=== PATIENT | female | born 1945 | race Caucasian/White ===

== ENCOUNTER 2020-05-30 12:02 | Inpatient (IN) | payer MEDICARE, OTHER ==
[2020-05-30 13:28] LABS: Actual Bicarbonate (HCO3a) 35.4 mEq/L (22-28); Analyzer IN Cardio ER; Base Excess (BEa) 7.3 mEq/L (-2.0 to +3.0); Calcium, Ionized (arterial) 1.15 mmol/L (1.12-1.30); Carboxyhemoglobin (COHb) 0.1 gm% (0.0-3.0); Hemoglobin (Hb) 12.4 g/dL (12.0-16.0); Potassium - ABG Lab 3.66 mmol/L (3.70-5.30); pH, Arterial 7.33 (7.35-7.45)
[2020-05-30 13:30] LABS: CO2 Tension 68.4 mmHg (35.0-45.0); O2 Tension (PaO2), arterial 52.7 mmHg (> 70.0); Puncture Site RRA
[2020-05-30] MEDS ORDERED: Albuterol Sulfate 2.5 mg/3 ml Neb NEB PRN (14:26)
[2020-05-30] MEDS ORDERED: methylPREDNISolone Sod Succ 40 MG VIAL ONE (15:06)
[2020-05-30] MEDS ORDERED: Lorazepam 2 MG/ML VIAL ONE (15:06)
[2020-05-30 15:08] LABS: #Eosinphils 0.1 thou/uL (0.0-0.7); #Lymphocytes 1.5 thou/uL (1.20-3.40); #Monocytes 1.8 thou/uL (0.11-0.59); #Neutrophils 16.2 thou/uL (1.40-6.50); %Basophils 0.1 % (0.0-1.0); %Eosinophils 0.6 % (0.0-10.0); %Lymphocytes 7.8 % (21.0-51.0); %Monocytes 9.1 % (0.0-10.0); %Neutrophils 82.4 % (42.0-75.0); Hemoglobin 12.2 g/dL (12.0-16.0); Mean Corpuscular HGB CONC 33.1 g/dL (32.0-36.0); Mean Corpuscular Hemoglobin 32.7 pg (27.0-31.0); Mean Corpuscular Volume 98.8 fL (78.0-98.0); Mean Platelet Volume 6.8 fL (7.4-10.4); Platelet Count 292 thou/uL (130-400); RBC Distribution Width 12.8 % (11.5-14.5); Red Blood Cell (RBC) Count 3.73 mill/uL (4.20-5.40); White Blood Cell (WBC) Count 19.7 thou/uL (4.8-10.8)
[2020-05-30] MEDS ORDERED: Lorazepam 2 MG/ML VIAL SLOW IVP PRN (15:09)
[2020-05-30 15:13] LABS: PTT 26.1 sec (22.9-36.1); Prothrombin Time 13.2 sec (12.0-14.7)
[2020-05-30] MEDS ORDERED: Ondansetron PF 4 MG/2 ML Vial IVP PRN (15:14)
[2020-05-30] MEDS ORDERED: methylPREDNISolone Sod Succ/PF 125 MG/2 ML VIAL IVP SCH (15:15)
[2020-05-30] MEDS ORDERED: Ventilator Sedation Protocol 1 EACH FS SCH (15:15)
[2020-05-30] MEDS ORDERED: Rocuronium Bromide 10 MG/ML (10ML VIAL) ONE (15:20)
[2020-05-30 15:25] LABS: Lactic Acid 1.2 mmol/L (0.5-2.2)
[2020-05-30 15:29] LABS: Anion Gap 15 mmol/L (10-20); BUN (Urea Nitrogen) 23 mg/dL (9.8-20.1); Calc. Creatinine Clearance 0 mL/min (70-130); Calcium 8.9 mg/dL (7.8-10.44); Carbon Dioxide 34 mmol/L (23-31); Chloride 96 mmol/L (98-107); Glucose 102 mg/dL (83-110); Magnesium 2.3 mg/dL (1.6-2.6); Potassium 4.1 mmol/L (3.5-5.1); Sodium 141 mmol/L (136-145)
[2020-05-30] MEDS ORDERED: Propofol BOLUS 1,000 MG/100 ML VIAL IV PRN (15:30)
[2020-05-30] MEDS ORDERED: Fentanyl BOLUS 250 ML IVPB PRN (15:30)
[2020-05-30] MEDS ORDERED: DISCONTINUE PREVIOUS NARCOTIC PAIN MEDICATIONS AND BENZODIAZEPINES FS SCH (15:30)
[2020-05-30] MEDS ORDERED: Fentanyl CADD 100 ML IV SCH (15:45)
[2020-05-30] MEDS ORDERED: Propofol 1,000 MG/100 ML VIAL IV ONE (16:12)
[2020-05-30] MEDS ORDERED: Vecuronium 10 MG VIAL IVP PRN (16:59)
[2020-05-30 17:02] LABS: Actual Bicarbonate (HCO3a) 33.1 mEq/L (22-28); Base Excess (BEa) 6.2 mEq/L (-2.0 to +3.0); CO2 Tension 58.4 mmHg (35.0-45.0); Calcium, Ionized (arterial) 1.11 mmol/L (1.12-1.30); Carboxyhemoglobin (COHb) 0.5 gm% (0.0-3.0); Hemoglobin (Hb) 12.7 g/dL (12.0-16.0); O2 Tension (PaO2), arterial 90.7 mmHg (> 70.0); Potassium - ABG Lab 3.35 mmol/L (3.70-5.30); pH, Arterial 7.37 (7.35-7.45)
[2020-05-30 17:13] LABS: Puncture Site LRA
[2020-05-30] MEDS ORDERED: methylPREDNISolone Sod Succ 40 MG VIAL IVP SCH (18:00)
[2020-05-30] MEDS: Cefepime 2 GM in Sodium Chloride 0.9% 100 ML IVPB SCH (20:15)
[2020-05-30] MEDS: methylPREDNISolone Sod Succ 40 MG VIAL IVP SCH (20:18)
[2020-05-30] MEDS: Enoxaparin Sodium 60 MG/0.6 ML SYRINGE SC SCH (20:19)
[2020-05-30] MEDS: Propofol 1,000 MG/100 ML VIAL IV PRN (22:03)
[2020-05-31] MEDS: methylPREDNISolone Sod Succ 40 MG VIAL IVP SCH ×4 (03:15→20:39)
[2020-05-31 04:11] LABS: #Lymphocytes 0.5 thou/uL (1.20-3.40); #Monocytes 0.3 thou/uL (0.11-0.59); #Neutrophils 15.2 thou/uL (1.40-6.50); %Basophils 0.1 % (0.0-1.0); %Eosinophils 0.1 % (0.0-10.0); %Lymphocytes 2.8 % (21.0-51.0); %Monocytes 1.7 % (0.0-10.0); %Neutrophils 95.2 % (42.0-75.0); Hemoglobin 11.2 g/dL (12.0-16.0); Mean Corpuscular HGB CONC 33.5 g/dL (32.0-36.0); Mean Corpuscular Hemoglobin 32.5 pg (27.0-31.0); Platelet Count 321 thou/uL (130-400); RBC Distribution Width 12.6 % (11.5-14.5); Red Blood Cell (RBC) Count 3.45 mill/uL (4.20-5.40); White Blood Cell (WBC) Count 15.9 thou/uL (4.8-10.8)
[2020-05-31 04:30] LABS: Anion Gap 17 mmol/L (10-20); BUN (Urea Nitrogen) 25 mg/dL (9.8-20.1); Calc. Creatinine Clearance 54 mL/min (70-130); Calcium 8.2 mg/dL (7.8-10.44); Carbon Dioxide 28 mmol/L (23-31); Chloride 98 mmol/L (98-107); Glucose 135 mg/dL (83-110); Potassium 3.6 mmol/L (3.5-5.1); Sodium 139 mmol/L (136-145)
[2020-05-31] MEDS: Cefepime 2 GM in Sodium Chloride 0.9% 100 ML IVPB SCH ×2 (08:09→20:39)
[2020-05-31] MEDS: Enoxaparin Sodium 60 MG/0.6 ML SYRINGE SC SCH ×2 (08:10→20:39)
[2020-05-31] MEDS ORDERED: FLU VACC QS2020-21(65YR UP)/PF 240 MCG/0.7 ML SYRINGE IM ONE (09:00)
[2020-05-31] MEDS: Propofol 1,000 MG/100 ML VIAL IV PRN ×2 (09:07→18:22)
[2020-05-31] MEDS: Diltiazem 125 MG in Sodium Chloride 0.9% 100 ML IVPB SCH (09:09)
[2020-05-31] MEDS ORDERED: Digoxin 0.5 MG/2 ML AMP SLOW IVP SCH (16:00)
[2020-05-31] MEDS ORDERED: Metoprolol Tartrate 25 MG TAB PO SCH (16:15)
[2020-06-01] MEDS: methylPREDNISolone Sod Succ 40 MG VIAL IVP SCH ×4 (02:22→20:19)
[2020-06-01] MEDS: Propofol 1,000 MG/100 ML VIAL IV PRN (02:23)
[2020-06-01 04:09] LABS: Anion Gap 14 mmol/L (10-20); BUN (Urea Nitrogen) 36 mg/dL (9.8-20.1); Calc. Creatinine Clearance 46 mL/min (70-130); Calcium 8.5 mg/dL (7.8-10.44); Carbon Dioxide 29 mmol/L (23-31); Chloride 99 mmol/L (98-107); Glucose 231 mg/dL (83-110); Sodium 138 mmol/L (136-145)
[2020-06-01 04:35] LABS: Band 2 % (5-11); Hemoglobin 11.8 g/dL (12.0-16.0); Hypochromia SLIGHT = 6-15 cells (100X) (0-5/hpf); MDiff Complete? YES; Mean Corpuscular HGB CONC 33.1 g/dL (32.0-36.0); Mean Corpuscular Hemoglobin 32.1 pg (27.0-31.0); Mean Corpuscular Volume 97.1 fL (78.0-98.0); Mean Platelet Volume 6.5 fL (7.4-10.4); Monocytes 9 % (0-10); Neutrophil 89 % (42-75); Platelet Count 345 thou/uL (130-400); Platelet Morphology Comment Appears Adequate; Red Blood Cell (RBC) Count 3.67 mill/uL (4.20-5.40); White Blood Cell (WBC) Count 26.9 thou/uL (4.8-10.8)
[2020-06-01] MEDS: Diltiazem 125 MG in Sodium Chloride 0.9% 100 ML IVPB SCH (08:57)
[2020-06-01] MEDS ORDERED: Metoprolol Tartrate 25 MG TAB PO SCH (09:00)
[2020-06-01] MEDS: Digoxin 0.5 MG/2 ML AMP SLOW IVP SCH (09:02)
[2020-06-01] MEDS: Enoxaparin Sodium 60 MG/0.6 ML SYRINGE SC SCH ×2 (09:07→20:19)
[2020-06-01] MEDS: Cefepime 2 GM in Sodium Chloride 0.9% 100 ML IVPB SCH ×2 (09:08→20:19)
[2020-06-01] MEDS ORDERED: Sodium Chloride 0.9% 250 ML IV SCH (11:30)
[2020-06-01] MEDS: Lorazepam 2 MG/ML VIAL SLOW IVP PRN (12:07)
[2020-06-01] MEDS: Metoprolol Tartrate 50 MG TAB PO SCH (12:51)
[2020-06-01] MEDS ORDERED: Fentanyl CADD 100 ML ONE (13:35)
[2020-06-01] MEDS ORDERED: Sodium Chloride 0.9% 1,000 ML IV SCH (14:00)
[2020-06-01] MEDS: Amiodarone 450 MG, Admixture Fee 1 EACH in Dextrose 5% in Water 250 ML IVPB SCH ×2 (16:15→22:01)
[2020-06-02 04:24] LABS: Anion Gap 14 mmol/L (10-20); BUN (Urea Nitrogen) 48 mg/dL (9.8-20.1); Calc. Creatinine Clearance 42 mL/min (70-130); Calcium 8.6 mg/dL (7.8-10.44); Carbon Dioxide 30 mmol/L (23-31); Chloride 102 mmol/L (98-107); Glucose 220 mg/dL (83-110); Potassium 4.5 mmol/L (3.5-5.1); Sodium 141 mmol/L (136-145)
[2020-06-02] MEDS ORDERED: Fentanyl CADD 100 ML ONE ×2 (04:38→17:41)
[2020-06-02 04:40] LABS: Hemoglobin 11.5 g/dL (12.0-16.0); Mean Corpuscular HGB CONC 32.6 g/dL (32.0-36.0); Mean Corpuscular Hemoglobin 32.2 pg (27.0-31.0); Mean Corpuscular Volume 98.8 fL (78.0-98.0); Mean Platelet Volume 6.5 fL (7.4-10.4); Platelet Count 299 thou/uL (130-400); Red Blood Cell (RBC) Count 3.56 mill/uL (4.20-5.40); White Blood Cell (WBC) Count 27.6 thou/uL (4.8-10.8)
[2020-06-02 04:41] LABS: Band 1 % (5-11); MDiff Complete? YES; Monocytes 3 % (0-10); Neutrophil 96 % (42-75); Platelet Morphology Comment Appears Adequate
[2020-06-02] MEDS: methylPREDNISolone Sod Succ 40 MG VIAL IVP SCH ×4 (04:41→20:06)
[2020-06-02] MEDS: Digoxin 0.5 MG/2 ML AMP SLOW IVP SCH (08:19)
[2020-06-02] MEDS: Acetaminophen 325 MG TAB PO PRN (08:22)
[2020-06-02] MEDS: Enoxaparin Sodium 60 MG/0.6 ML SYRINGE SC SCH ×2 (08:23→20:06)
[2020-06-02] MEDS: Cefepime 2 GM in Sodium Chloride 0.9% 100 ML IVPB SCH ×2 (08:23→20:06)
[2020-06-02] MEDS: Metoprolol Tartrate 50 MG TAB PO SCH (08:24)
[2020-06-02] MEDS: Amiodarone 450 MG, Admixture Fee 1 EACH in Dextrose 5% in Water 250 ML IVPB SCH (15:18)
[2020-06-02] MEDS: Lorazepam 2 MG/ML VIAL SLOW IVP PRN (18:14)
[2020-06-02] MEDS ORDERED: Electrolyte Replacement Protocol 1 EACH FS SCH (18:30)
[2020-06-02] MEDS ORDERED: Electrolyte Replacement Protocol FS PRN (18:30)
[2020-06-03] MEDS: methylPREDNISolone Sod Succ 40 MG VIAL IVP SCH ×4 (03:57→21:14)
[2020-06-03 04:14] LABS: Phosphorus 4.4 mg/dL (2.3-4.7)
[2020-06-03 04:15] LABS: Anion Gap 13 mmol/L (10-20); BUN (Urea Nitrogen) 47 mg/dL (9.8-20.1); Calc. Creatinine Clearance 46 mL/min (70-130); Calcium 8.6 mg/dL (7.8-10.44); Carbon Dioxide 26 mmol/L (23-31); Chloride 104 mmol/L (98-107); Glucose 213 mg/dL (83-110); Magnesium 2.8 mg/dL (1.6-2.6); Potassium 5.2 mmol/L (3.5-5.1); Sodium 138 mmol/L (136-145)
[2020-06-03 04:23] LABS: Band 1 % (5-11); Hemoglobin 11.6 g/dL (12.0-16.0); Lymphocytes 7 % (21-51); MDiff Complete? YES; Mean Corpuscular Volume 99.9 fL (78.0-98.0); Mean Platelet Volume 6.6 fL (7.4-10.4); Monocytes 4 % (0-10); Neutrophil 88 % (42-75); Platelet Count 275 thou/uL (130-400); Platelet Morphology Comment Appears Adequate; RBC Distribution Width 13.1 % (11.5-14.5); RBC Morphology Normal; Red Blood Cell (RBC) Count 3.61 mill/uL (4.20-5.40)
[2020-06-03] MEDS ORDERED: Fentanyl CADD 100 ML ONE (08:28)
[2020-06-03] MEDS: Cefepime 2 GM in Sodium Chloride 0.9% 100 ML IVPB SCH ×2 (08:44→21:14)
[2020-06-03] MEDS: Digoxin 0.5 MG/2 ML AMP SLOW IVP SCH (08:45)
[2020-06-03] MEDS: Enoxaparin Sodium 60 MG/0.6 ML SYRINGE SC SCH ×2 (08:47→21:13)
[2020-06-03] MEDS: Metoprolol Tartrate 50 MG TAB PO SCH (08:47)
[2020-06-03] MEDS: Lorazepam 2 MG/ML VIAL SLOW IVP PRN (22:39)
[2020-06-04] MEDS ORDERED: Fentanyl CADD 100 ML ONE (00:10)
[2020-06-04] MEDS: Fentanyl CADD 100 ML IV SCH (00:24)
[2020-06-04] MEDS: methylPREDNISolone Sod Succ 40 MG VIAL IVP SCH ×4 (03:36→21:59)
[2020-06-04 04:26] LABS: Anion Gap 12 mmol/L (10-20); BUN (Urea Nitrogen) 47 mg/dL (9.8-20.1); Calc. Creatinine Clearance 48 mL/min (70-130); Calcium 8.6 mg/dL (7.8-10.44); Carbon Dioxide 31 mmol/L (23-31); Chloride 104 mmol/L (98-107); Glucose 236 mg/dL (83-110); Potassium 5.7 mmol/L (3.5-5.1); Sodium 141 mmol/L (136-145)
[2020-06-04 04:33] LABS: Band 10 % (5-11); Hemoglobin 11.3 g/dL (12.0-16.0); Lymphocytes 2 % (21-51); MDiff Complete? YES; Mean Corpuscular HGB CONC 31.9 g/dL (32.0-36.0); Mean Corpuscular Hemoglobin 31.8 pg (27.0-31.0); Mean Corpuscular Volume 99.8 fL (78.0-98.0); Monocytes 5 % (0-10); Neutrophil 83 % (42-75); Platelet Count 241 thou/uL (130-400); Platelet Morphology Comment Appears Adequate; RBC Distribution Width 13.2 % (11.5-14.5); Red Blood Cell (RBC) Count 3.56 mill/uL (4.20-5.40); White Blood Cell (WBC) Count 21.6 thou/uL (4.8-10.8)
[2020-06-04] MEDS: Amiodarone 450 MG, Admixture Fee 1 EACH in Dextrose 5% in Water 250 ML IVPB SCH (05:20)
[2020-06-04] MEDS: Digoxin 0.5 MG/2 ML AMP SLOW IVP SCH (08:10)
[2020-06-04] MEDS: Cefepime 2 GM in Sodium Chloride 0.9% 100 ML IVPB SCH ×2 (08:11→21:58)
[2020-06-04] MEDS: Enoxaparin Sodium 60 MG/0.6 ML SYRINGE SC SCH ×2 (08:17→21:59)
[2020-06-04] MEDS: Metoprolol Tartrate 50 MG TAB PO SCH (08:17)
[2020-06-04 08:40] LABS: Actual Bicarbonate (HCO3a) 32.8 mEq/L (22-28); CO2 Tension 66.1 mmHg (35.0-45.0); Calcium, Ionized (arterial) 1.19 mmol/L (1.12-1.30); Carboxyhemoglobin (COHb) 0.9 gm% (0.0-3.0); Hemoglobin (Hb) 11.5 g/dL (12.0-16.0); O2 Tension (PaO2), arterial 54.8 mmHg (> 70.0); Potassium - ABG Lab 5.45 mmol/L (3.70-5.30); pH, Arterial 7.31 (7.35-7.45)
[2020-06-04 08:41] LABS: ALV-art Gradient 76.475 mmHg (0-20); Puncture Site RRA
[2020-06-04] MEDS: Lorazepam 2 MG/ML VIAL SLOW IVP PRN ×5 (11:14→22:27)
[2020-06-05] MEDS: Lorazepam 2 MG/ML VIAL SLOW IVP PRN ×9 (00:26→20:45)
[2020-06-05] MEDS: methylPREDNISolone Sod Succ 40 MG VIAL IVP SCH ×5 (03:48→20:19)
[2020-06-05 04:14] LABS: Band 3 % (5-11); Hemoglobin 10.7 g/dL (12.0-16.0); Hypochromia SLIGHT = 6-15 cells (100X) (0-5/hpf); Lymphocytes 10 % (21-51); MDiff Complete? YES; Mean Corpuscular Hemoglobin 32.5 pg (27.0-31.0); Mean Corpuscular Volume 98.5 fL (78.0-98.0); Mean Platelet Volume 7.2 fL (7.4-10.4); Monocytes 5 % (0-10); Neutrophil 82 % (42-75); Platelet Count 224 thou/uL (130-400); Platelet Morphology Comment Appears Adequate; White Blood Cell (WBC) Count 22.5 thou/uL (4.8-10.8)
[2020-06-05 04:19] LABS: Anion Gap 16 mmol/L (10-20); BUN (Urea Nitrogen) 39 mg/dL (9.8-20.1); Calc. Creatinine Clearance 59 mL/min (70-130); Calcium 8.3 mg/dL (7.8-10.44); Carbon Dioxide 27 mmol/L (23-31); Chloride 103 mmol/L (98-107); Glucose 272 mg/dL (83-110); Sodium 141 mmol/L (136-145)
[2020-06-05 07:36] LABS: Actual Bicarbonate (HCO3a) 33.5 mEq/L (22-28); Base Excess (BEa) 9.1 mEq/L (-2.0 to +3.0); CO2 Tension 45.1 mmHg (35.0-45.0); Calcium, Ionized (arterial) 1.11 mmol/L (1.12-1.30); Carboxyhemoglobin (COHb) 0.2 gm% (0.0-3.0); Hemoglobin (Hb) 11.1 g/dL (12.0-16.0); Potassium - ABG Lab 4.59 mmol/L (3.70-5.30); pH, Arterial 7.49 (7.35-7.45)
[2020-06-05 07:37] LABS: ALV-art Gradient 101.625 mmHg (0-20); O2 Tension (PaO2), arterial 55.9 mmHg (> 70.0); Puncture Site RRA
[2020-06-05] MEDS: Cefepime 2 GM in Sodium Chloride 0.9% 100 ML IVPB SCH ×2 (07:38→20:18)
[2020-06-05] MEDS: Digoxin 0.5 MG/2 ML AMP SLOW IVP SCH (07:39)
[2020-06-05] MEDS: Enoxaparin Sodium 60 MG/0.6 ML SYRINGE SC SCH ×2 (07:40→20:18)
[2020-06-05] MEDS: Metoprolol Tartrate 50 MG TAB PO SCH (07:40)
[2020-06-05] MEDS ORDERED: Pantoprazole 40 MG VIAL IVP SCH (12:00)
[2020-06-05] MEDS: Morphine 2 MG/ML VIAL SLOW IVP PRN (20:45)
[2020-06-05] MEDS: Amiodarone 450 MG, Admixture Fee 1 EACH in Dextrose 5% in Water 250 ML IVPB SCH (23:26)
[2020-06-06] MEDS: Lorazepam 2 MG/ML VIAL SLOW IVP PRN ×6 (00:01→18:46)
[2020-06-06] MEDS: Morphine 2 MG/ML VIAL SLOW IVP PRN ×5 (00:01→20:26)
[2020-06-06] MEDS: methylPREDNISolone Sod Succ 40 MG VIAL IVP SCH ×4 (04:11→20:22)
[2020-06-06 04:16] LABS: Band 5 % (5-11); Eosinophils 1 % (0-10); Hemoglobin 10.3 g/dL (12.0-16.0); MDiff Complete? YES; Mean Corpuscular Hemoglobin 32.5 pg (27.0-31.0); Mean Corpuscular Volume 98.3 fL (78.0-98.0); Mean Platelet Volume 7.6 fL (7.4-10.4); Monocytes 6 % (0-10); Neutrophil 88 % (42-75); Platelet Count 208 thou/uL (130-400); Platelet Morphology Comment Appears Adequate; RBC Distribution Width 13.3 % (11.5-14.5); Red Blood Cell (RBC) Count 3.16 mill/uL (4.20-5.40); White Blood Cell (WBC) Count 25.5 thou/uL (4.8-10.8)
[2020-06-06 04:26] LABS: Anion Gap 15 mmol/L (10-20); BUN (Urea Nitrogen) 34 mg/dL (9.8-20.1); Calc. Creatinine Clearance 60 mL/min (70-130); Calcium 8.1 mg/dL (7.8-10.44); Carbon Dioxide 31 mmol/L (23-31); Chloride 104 mmol/L (98-107); Glucose 218 mg/dL (83-110); Sodium 146 mmol/L (136-145)
[2020-06-06 08:20] LABS: Actual Bicarbonate (HCO3a) 32.3 mEq/L (22-28); CO2 Tension 43.7 mmHg (35.0-45.0); Carboxyhemoglobin (COHb) 0.7 gm% (0.0-3.0); Hemoglobin (Hb) 11.1 g/dL (12.0-16.0); Potassium - ABG Lab 3.99 mmol/L (3.70-5.30); pH, Arterial 7.49 (7.35-7.45)
[2020-06-06 08:21] LABS: O2 Tension (PaO2), arterial 47.9 mmHg (> 70.0); Puncture Site RBA
[2020-06-06 08:22] LABS: ALV-art Gradient 111.375 mmHg (0-20)
[2020-06-06] MEDS: Cefepime 2 GM in Sodium Chloride 0.9% 100 ML IVPB SCH ×2 (08:51→20:21)
[2020-06-06] MEDS: Enoxaparin Sodium 60 MG/0.6 ML SYRINGE SC SCH ×2 (08:51→20:22)
[2020-06-06] MEDS: Metoprolol Tartrate 50 MG TAB PO SCH (08:52)
[2020-06-06] MEDS: Digoxin 0.5 MG/2 ML AMP SLOW IVP SCH (08:52)
[2020-06-06] MEDS ORDERED: Pantoprazole 40 MG VIAL IVP SCH (09:00)
[2020-06-06] MEDS: Amiodarone 450 MG, Admixture Fee 1 EACH in Dextrose 5% in Water 250 ML IVPB SCH (14:28)
[2020-06-06] MEDS: Acetaminophen 325 MG TAB PO PRN (16:05)
[2020-06-06] MEDS ORDERED: Bisacodyl 10 MG SUPP PR SCH (16:15)
[2020-06-06] MEDS: Vancomycin 1 GM in Premix Bag 1 BAG IVPB SCH (17:11)
[2020-06-07] MEDS: Morphine 2 MG/ML VIAL SLOW IVP PRN (03:29)
[2020-06-07] MEDS: Lorazepam 2 MG/ML VIAL SLOW IVP PRN (03:30)
[2020-06-07] MEDS: methylPREDNISolone Sod Succ 40 MG VIAL IVP SCH ×4 (03:34→20:19)
[2020-06-07] MEDS: Amiodarone 450 MG, Admixture Fee 1 EACH in Dextrose 5% in Water 250 ML IVPB SCH ×2 (06:35→22:46)
[2020-06-07 07:29] LABS: Actual Bicarbonate (HCO3a) 33.1 mEq/L (22-28); Base Excess (BEa) 7.9 mEq/L (-2.0 to +3.0); Calcium, Ionized (arterial) 1.07 mmol/L (1.12-1.30); Carboxyhemoglobin (COHb) 0.3 gm% (0.0-3.0); Hemoglobin (Hb) 11.5 g/dL (12.0-16.0); O2 Tension (PaO2), arterial 75.7 mmHg (> 70.0); Potassium - ABG Lab 3.79 mmol/L (3.70-5.30); pH, Arterial 7.45 (7.35-7.45)
[2020-06-07 07:32] LABS: Puncture Site RRA
[2020-06-07] MEDS: Digoxin 0.5 MG/2 ML AMP SLOW IVP SCH (08:17)
[2020-06-07] MEDS: Cefepime 2 GM in Sodium Chloride 0.9% 100 ML IVPB SCH ×2 (08:17→20:19)
[2020-06-07] MEDS: Metoprolol Tartrate 50 MG TAB PO SCH (08:18)
[2020-06-07] MEDS: Enoxaparin Sodium 60 MG/0.6 ML SYRINGE SC SCH ×2 (08:18→20:18)
[2020-06-07] MEDS: Pantoprazole 40 MG GRANULES PACKET PO SCH (08:18)
[2020-06-07] MEDS: Polyethylene Glycol 3350 17 GM Packet PO SCH (08:18)
[2020-06-07] MEDS: Acetaminophen 325 MG TAB PO PRN ×3 (08:39→17:46)
[2020-06-07] MEDS: Vancomycin 1 GM in Premix Bag 1 BAG IVPB SCH (17:46)
[2020-06-08] MEDS: methylPREDNISolone Sod Succ 40 MG VIAL IVP SCH ×4 (04:26→20:18)
[2020-06-08] MEDS: Lorazepam 2 MG/ML VIAL SLOW IVP PRN (05:43)
[2020-06-08 06:54] LABS: Actual Bicarbonate (HCO3a) 30.4 mEq/L (22-28); Base Excess (BEa) 5.3 mEq/L (-2.0 to +3.0); CO2 Tension 46.3 mmHg (35.0-45.0); Calcium, Ionized (arterial) 1.05 mmol/L (1.12-1.30); Carboxyhemoglobin (COHb) 0.2 gm% (0.0-3.0); Hemoglobin (Hb) 12.5 g/dL (12.0-16.0); O2 Tension (PaO2), arterial 81.7 mmHg (> 70.0); Potassium - ABG Lab 4.02 mmol/L (3.70-5.30); pH, Arterial 7.44 (7.35-7.45)
[2020-06-08 06:57] LABS: Puncture Site RRA
[2020-06-08 06:58] LABS: ALV-art Gradient 145.625 mmHg (0-20)
[2020-06-08] MEDS: Enoxaparin Sodium 60 MG/0.6 ML SYRINGE SC SCH ×2 (08:01→20:17)
[2020-06-08] MEDS: Cefepime 2 GM in Sodium Chloride 0.9% 100 ML IVPB SCH ×2 (08:01→20:17)
[2020-06-08] MEDS: Digoxin 0.5 MG/2 ML AMP SLOW IVP SCH (08:02)
[2020-06-08] MEDS: Polyethylene Glycol 3350 17 GM Packet PO SCH (08:05)
[2020-06-08] MEDS: Metoprolol Tartrate 50 MG TAB PO SCH (08:05)
[2020-06-08] MEDS: Pantoprazole 40 MG GRANULES PACKET PO SCH (08:05)
[2020-06-08] MEDS: Acetaminophen 325 MG TAB PO PRN ×3 (08:05→16:30)
[2020-06-08] MEDS ORDERED: Sodium Chloride 0.9% 1,000 ML IV SCH (11:00)
[2020-06-08 13:28] VITALS: BMI 19.3
[2020-06-08] MEDS: Amiodarone 450 MG, Admixture Fee 1 EACH in Dextrose 5% in Water 250 ML IVPB SCH (14:46)
[2020-06-08 16:40] LABS: Vancomycin, Trough 12.7 ug/mL
[2020-06-08] MEDS: Vancomycin 1 GM in Premix Bag 1 BAG IVPB SCH (17:22)
[2020-06-08] MEDS: VANCOMYCIN 1.25 GM/250 ML BAG 1.25 GM in Premix Bag 1 BAG IVPB SCH (17:47)
[2020-06-09] MEDS: methylPREDNISolone Sod Succ 40 MG VIAL IVP SCH ×4 (03:57→21:19)
[2020-06-09 04:56] LABS: Anion Gap 18 mmol/L (10-20); Calc. Creatinine Clearance 14 mL/min (70-130); Calcium 7.3 mg/dL (7.8-10.44); Carbon Dioxide 25 mmol/L (23-31); Chloride 105 mmol/L (98-107); Glucose 461 mg/dL (83-110); Magnesium 2.2 mg/dL (1.6-2.6); Potassium 4.8 mmol/L (3.5-5.1); Sodium 143 mmol/L (136-145)
[2020-06-09 05:25] LABS: BUN (Urea Nitrogen) 135 mg/dL (9.8-20.1)
[2020-06-09] MEDS: Amiodarone 450 MG, Admixture Fee 1 EACH in Dextrose 5% in Water 250 ML IVPB SCH (05:54)
[2020-06-09 06:13] LABS: Band 32 % (5-11); Hemoglobin 11.2 g/dL (12.0-16.0); Lymphocytes 1 % (21-51); MDiff Complete? YES; Mean Corpuscular HGB CONC 32.3 g/dL (32.0-36.0); Mean Corpuscular Hemoglobin 32.2 pg (27.0-31.0); Mean Corpuscular Volume 99.6 fL (78.0-98.0); Mean Platelet Volume 9.8 fL (7.4-10.4); Monocytes 2 % (0-10); Neutrophil 65 % (42-75); Platelet Count 227 thou/uL (130-400); RBC Distribution Width 13.5 % (11.5-14.5); Red Blood Cell (RBC) Count 3.49 mill/uL (4.20-5.40); White Blood Cell (WBC) Count 33.5 thou/uL (4.8-10.8)
[2020-06-09] MEDS ORDERED: Loratadine 10 MG TAB PO PRN (07:45)
[2020-06-09] MEDS ORDERED: GUAIFENESIN SF SOLN 200 MG/10 ML UDCUP PO PRN (07:45)
[2020-06-09] MEDS ORDERED: Senokot S 8.6-50 MG TAB PO PRN (07:45)
[2020-06-09] MEDS ORDERED: Bisacodyl 10 MG SUPP PR PRN (07:45)
[2020-06-09] MEDS ORDERED: Ondansetron ODT 4 MG TAB PO PRN (07:45)
[2020-06-09] MEDS ORDERED: Bisacodyl 5 MG TAB PO PRN (07:45)
[2020-06-09] MEDS: Metoprolol Tartrate 50 MG TAB PO SCH (09:06)
[2020-06-09] MEDS: Digoxin 0.5 MG/2 ML AMP SLOW IVP SCH (09:06)
[2020-06-09] MEDS: Polyethylene Glycol 3350 17 GM Packet PO SCH (09:06)
[2020-06-09] MEDS: Enoxaparin Sodium 60 MG/0.6 ML SYRINGE SC SCH ×2 (09:07→21:32)
[2020-06-09] MEDS: Pantoprazole 40 MG GRANULES PACKET PO SCH (09:14)
[2020-06-09] MEDS: MEROPENEM 1 GM/50 ML 1 GM in Premix Bag 1 BAG IVPB SCH (09:14)
[2020-06-09] MEDS: Saccharomyces boulardii 250 MG CAP PER TUBE SCH (10:25)
[2020-06-09] MEDS ORDERED: Dextrose 5% in Water 1,000 ML IV PRN (11:32)
[2020-06-09] MEDS ORDERED: Dextrose 50% Abboject 50 ML SYRINGE SLOW IVP PRN (11:32)
[2020-06-09] MEDS: Acetaminophen 650 MG Suppository PR PRN ×2 (12:19→17:34)
[2020-06-09] MEDS: Sodium Chloride 0.9% 1,000 ML IV SCH (12:19)
[2020-06-09] MEDS ORDERED: Insulin Regular 300 UNITS/3 ML VIAL ONE ×2 (12:57→23:28)
[2020-06-09] MEDS: HumaLOG 300 UNITS/3 ML VIAL SC PRN ×3 (12:58→23:05)
[2020-06-09] MEDS: Lorazepam 2 MG/ML VIAL SLOW IVP PRN (15:00)
[2020-06-09] MEDS ORDERED: Fentanyl CADD 100 ML ONE (15:30)
[2020-06-09] MEDS: Fentanyl CADD 100 ML IV SCH (15:33)
[2020-06-09] MEDS: Acetaminophen 325 MG TAB PO PRN (17:53)
[2020-06-09] MEDS: VANCOMYCIN 1.25 GM/250 ML BAG 1.25 GM in Premix Bag 1 BAG IVPB SCH (17:59)
[2020-06-09] MEDS: Norepinephrine 8 MG/0.9% NS 250 ML IVPB SCH (22:21)
[2020-06-09 23:02] LABS: Actual Bicarbonate (HCO3a) 18.5 mEq/L (22-28); Base Excess (BEa) -7.8 mEq/L (-2.0 to +3.0); Carboxyhemoglobin (COHb) 0.3 gm% (0.0-3.0); Hemoglobin (Hb) 9.1 g/dL (12.0-16.0); O2 Tension (PaO2), arterial 115.4 mmHg (> 70.0); Potassium - ABG Lab 6.66 mmol/L (3.70-5.30); pH, Arterial 7.27 (7.35-7.45)
[2020-06-09 23:03] LABS: Puncture Site LRA
[2020-06-09 23:04] LABS: Hemoglobin 8.5 g/dL (12.0-16.0); Mean Corpuscular HGB CONC 32.8 g/dL (32.0-36.0); Mean Corpuscular Hemoglobin 32.5 pg (27.0-31.0); Mean Corpuscular Volume 99.2 fL (78.0-98.0); Mean Platelet Volume 10.3 fL (7.4-10.4); Platelet Count 190 thou/uL (130-400); RBC Distribution Width 13.5 % (11.5-14.5); Red Blood Cell (RBC) Count 2.62 mill/uL (4.20-5.40); White Blood Cell (WBC) Count 24.4 thou/uL (4.8-10.8)
[2020-06-09 23:28] LABS: Band 10 % (5-11); Lymphocytes 1 % (21-51); MDiff Complete? YES; Monocytes 6 % (0-10); Neutrophil 83 % (42-75); Vacuoles SLIGHT
[2020-06-09 23:29] LABS: Potassium 6.6 mmol/L (3.5-5.1)
[2020-06-09 23:30] LABS: Albumin 1.7 g/dL (3.4-4.8); Alkaline Phosphatase 77 U/L (40-110); Anion Gap 21 mmol/L (10-20); Bilirubin, Total 0.4 mg/dL (0.2-1.2); Calc. Creatinine Clearance 10 mL/min (70-130); Calcium 6.5 mg/dL (7.8-10.44); Carbon Dioxide 22 mmol/L (23-31); Chloride 106 mmol/L (98-107); Globulin 1.6 g/dL (2.4-3.5); Glucose 347 mg/dL (83-110); Magnesium 2.5 mg/dL (1.6-2.6); Phosphorus 5.5 mg/dL (2.3-4.7); Protein, Total 3.3 g/dL (5.8-8.1); Sodium 142 mmol/L (136-145)
[2020-06-09 23:35] LABS: INR-International Normal Ratio 1.9; PTT 52.6 sec (22.9-36.1); Prothrombin Time 22.3 sec (12.0-14.7)
[2020-06-09 23:38] LABS: Lactic Acid 4.1 mmol/L (0.5-2.2)
[2020-06-09 23:40] LABS: ALT (SGPT) 2904 U/L (8-55); AST (SGOT) 2289 U/L (5-34); BUN (Urea Nitrogen) 151 mg/dL (9.8-20.1)
[2020-06-09] MEDS ORDERED: Insulin Regular 300 UNITS/3 ML VIAL IVP SCH (23:45)
[2020-06-09] MEDS ORDERED: Calcium Gluc 4.6 MEQ/10 ML (100 MG/ML) SLOW IVP SCH (23:45)
[2020-06-09] MEDS ORDERED: Sodium Bicarb 50 MEQ/50 ML Abboject 8.4% SYRINGE IVP SCH (23:45)
[2020-06-10] MEDS: Sodium Bicarb 50 MEQ/50 ML Abboject 8.4% SYRINGE ONE ×2 (00:04→01:14)
[2020-06-10] MEDS ORDERED: Albuterol Sulfate 2.5 mg/3 ml Neb NEB SCH (00:30)
[2020-06-10] MEDS: MEROPENEM 1 GM/50 ML 1 GM in Premix Bag 1 BAG IVPB SCH (01:10)
[2020-06-10] MEDS: HumaLOG 300 UNITS/3 ML VIAL SC PRN ×3 (01:31→21:22)
[2020-06-10] MEDS: Sodium Bicarbonate 150 MEQ in Dextrose 5% in Water 1,000 ML IV SCH ×2 (03:19→15:13)
[2020-06-10] MEDS: Sodium Chloride 0.9% 1,000 ML IV SCH (03:21)
[2020-06-10 03:44] LABS: Anion Gap 21 mmol/L (10-20); Calc. Creatinine Clearance 10 mL/min (70-130); Carbon Dioxide 24 mmol/L (23-31); Chloride 107 mmol/L (98-107); Glucose 213 mg/dL (83-110); Sodium 146 mmol/L (136-145)
[2020-06-10 03:56] LABS: BUN (Urea Nitrogen) 156 mg/dL (9.8-20.1)
[2020-06-10] MEDS: methylPREDNISolone Sod Succ 40 MG VIAL IVP SCH ×4 (04:06→20:36)
[2020-06-10 04:52] LABS: Band 19 % (5-11); Hemoglobin 9.1 g/dL (12.0-16.0); Lymphocytes 3 % (21-51); MDiff Complete? YES; Mean Corpuscular HGB CONC 32.5 g/dL (32.0-36.0); Mean Corpuscular Volume 98.4 fL (78.0-98.0); Mean Platelet Volume 10.3 fL (7.4-10.4); Monocytes 3 % (0-10); Neutrophil 75 % (42-75); Platelet Count 192 thou/uL (130-400); RBC Distribution Width 13.4 % (11.5-14.5); Red Blood Cell (RBC) Count 2.83 mill/uL (4.20-5.40); Toxic Granulation SLIGHT; Vacuoles SLIGHT; White Blood Cell (WBC) Count 37.3 thou/uL (4.8-10.8)
[2020-06-10 06:53] LABS: Lactic Acid 3.3 mmol/L (0.5-2.2)
[2020-06-10] MEDS ORDERED: Pantoprazole 40 MG VIAL IVP SCH (09:00)
[2020-06-10] MEDS ORDERED: MEROPENEM 1 GM/50 ML 1 GM in Premix Bag 1 BAG IVPB SCH (09:00)
[2020-06-10] MEDS ORDERED: Vancomycin 1 GM in Premix Bag 1 BAG IVPB SCH (09:15)
[2020-06-10] MEDS ORDERED: Vancomycin HCl 250 MG in Sodium Chloride 0.9% 100 ML IVPB SCH (09:15)
[2020-06-10] MEDS ORDERED: Vancomycin HCl 500 MG in Sodium Chloride 0.9% 100 ML IVPB SCH (09:15)
[2020-06-10] MEDS ORDERED: HOLD VANCOMYCIN FOR LEVEL >20 FS SCH (09:15)
[2020-06-10] MEDS ORDERED: Vancomycin Sliding Scale 1 EACH FS ONE (09:15)
[2020-06-10] MEDS ORDERED: Vancomycin HCl 750 MG in Sodium Chloride 0.9% 250 ML 250 ML IVPB SCH (09:15)
[2020-06-10] MEDS: Enoxaparin Sodium 60 MG/0.6 ML SYRINGE SC SCH (09:43)
[2020-06-10] MEDS: Meropenem 500 MG in Sodium Chloride 0.9% 100 ML IVPB SCH ×2 (09:44→20:37)
[2020-06-10] MEDS: Digoxin 0.5 MG/2 ML AMP SLOW IVP SCH (09:48)
[2020-06-10] MEDS: Metoprolol Tartrate 50 MG TAB PO SCH (09:49)
[2020-06-10] MEDS: Saccharomyces boulardii 250 MG CAP PER TUBE SCH (09:50)
[2020-06-10] MEDS: Polyethylene Glycol 3350 17 GM Packet PO SCH (09:50)
[2020-06-10 14:20] LABS: Fibrinogen 235 mg/dL (253-463)
[2020-06-10 14:21] LABS: INR-International Normal Ratio 2.6; Prothrombin Time 28.1 sec (12.0-14.7)
[2020-06-10 14:22] LABS: D-Dimer Test 1.07 *mcg/mL (0.27-0.43)
[2020-06-10] MEDS: Norepinephrine 8 MG/0.9% NS 250 ML IVPB SCH (14:48)
[2020-06-10 14:52] LABS: FSP-Qualitative Normal (Normal); FSP-Semiquantitative LESS THAN 5 mcg/mL (Less than 5)
[2020-06-10 14:53] LABS: Platelet Count 154 thou/uL (130-400)
[2020-06-10 17:30] LABS: Lactic Acid 9.7 mmol/L (0.5-2.2)
[2020-06-10 23:14] VITALS: BP 96/49
[2020-06-11 00:32] VITALS: TEMP 99.3
[2020-06-11] MEDS: Lorazepam 2 MG/ML VIAL SLOW IVP PRN (01:24)
[2020-06-11] MEDS: Morphine 2 MG/ML VIAL SLOW IVP PRN (01:24)
[2020-06-11] MEDS: methylPREDNISolone Sod Succ 40 MG VIAL IVP SCH (03:42)
== END 2020-06-11 02:05 | disposition expired | DRG 207 ==
LOC: ERS 12:02 → IMCU/EMU 13:00
PROVIDERS: ADMIT Internal Medicine; ATTEND Internal Medicine
PROC: 5A1955Z Respiratory Ventilation, Greater than 96 Consecutive Hours (ICD-10-PCS; principal; 2020-05-30)
PROC: 0BH17EZ Insertion of Endotracheal Airway into Trachea, Via Natural or Artificial Opening (ICD-10-PCS; 2020-05-30)
PROC: 5A09357 Assistance with Respiratory Ventilation, Less than 24 Consecutive Hours, Continuous Positive Airway Pressure (ICD-10-PCS; 2020-05-30)
PROC: 3E033XZ Introduction of Vasopressor into Peripheral Vein, Percutaneous Approach (ICD-10-PCS; 2020-06-01)
DX: J96.21 Acute and chronic respiratory failure with hypoxia (principal); G93.41 Metabolic encephalopathy; A41.9 Sepsis, unspecified organism; R65.21 Severe sepsis with septic shock; K55.069 Acute infarction of intestine, part and extent unspecified; K55.059 Acute (reversible) ischemia of intestine, part and extent unspecified; K72.00 Acute and subacute hepatic failure without coma; D65 Disseminated intravascular coagulation [defibrination syndrome]; N17.9 Acute kidney failure, unspecified; E44.0 Moderate protein-calorie malnutrition; R64 Cachexia; Z68.1 Body mass index [BMI] 19.9 or less, adult; F33.9 Major depressive disorder, recurrent, unspecified; Z66 Do not resuscitate; Z51.5 Encounter for palliative care; Z20.822 Contact with and (suspected) exposure to COVID-19; E87.5 Hyperkalemia; E78.5 Hyperlipidemia, unspecified; F41.9 Anxiety disorder, unspecified; J96.22 Acute and chronic respiratory failure with hypercapnia; I48.0 Paroxysmal atrial fibrillation; N18.2 Chronic kidney disease, stage 2 (mild); I12.9 Hypertensive chronic kidney disease with stage 1 through stage 4 chronic kidney disease, or unspecified chronic kidney disease; I73.9 Peripheral vascular disease, unspecified; J43.9 Emphysema, unspecified; R73.9 Hyperglycemia, unspecified; K63.89 Other specified diseases of intestine; I51.89 Other ill-defined heart diseases; S30.1XXA Contusion of abdominal wall, initial encounter; X58.XXXA Exposure to other specified factors, initial encounter; Z28.82 Immunization not carried out because of caregiver refusal; Z87.891 Personal history of nicotine dependence; Z99.81 Dependence on supplemental oxygen; Z79.899 Other long term (current) drug therapy; Z78.1 Physical restraint status
CPT/HCPCS: 31500; 36415; 36416; 36600; 51702; 71045; 74018; 74176; 76770; 80048; 80202; 82805; 83605; 83735; 83880; 84100; 84443; 85025; 85049; 85300; 85362; 85379; 85384; 85610; 85730; 87040; 87086; 93306; 94002; 94003; 94640; 94660; 96365; 96366; 96375; C9113; J0282; J0692; J1160; J1650; J1815; J2001; J2060; J2185; J2270; J2704; J2920; J2930; J3010; J3370; J3490; J7070; J7611; J7620